=== PATIENT | female | born 1935 | race Caucasian/White ===

== ENCOUNTER → 2019-05-15 | Outpatient (CLI) | payer OTHER ==
[~2019-05-15] MED LIST: FOSAMAX; HYDROCHLOROTHIAZIDE; LEVSIN; LOTREL 5-10 MG1 CAP PO; SYNTHROID125 MCG PO; ZANTAC
== END | disposition home or self-care (01) ==
LOC: TOM 07:53
DX: Z86.010 Personal history of colon polyps (principal); K63.5 Polyp of colon

== ENCOUNTER 2021-07-29 09:00 | Outpatient (CLI) | payer OTHER | END 2021-07-29 09:30 | disposition home or self-care (01) | LOC: PPH VACUNA 09:00 | PROVIDERS: ATTEND Emergency Medicine Pediatric Emergency Medicine | DX: Z23 Encounter for immunization (principal) ==